=== PATIENT | female | born 2000 | race Caucasian/White ===

== ENCOUNTER 2025-04-20 20:01 | Emergency (ER) | payer OTHER, SELFPAY ==
[2025-04-20 20:03] VITALS: BP 147/85
[2025-04-20 20:28] LABS: Hematocrit 39.6 % (37.0-47.0); Hemoglobin 12.9 g/dL (12.0-16.0); Mean Corp Hgb Conc. 32.6 g/dL (33.0-37.0); Mean Corpuscular Volume 96.4 fL (81.0-99.0); Nucleated Red Blood Cells % 0 %; Platelet Count 251 10^3/uL (130-400); Red Cell Dist. Width 13.2 % (11.5-14.5); Urine Character Clear (Clear)
[2025-04-20 20:36] LABS: Urine Red Blood Cell 0-2 /HPF (0-2)
[2025-04-20 20:41] LABS: HCG, Serum Qualitative Screen Negative
[2025-04-20 20:47] LABS: ALT (SGPT) 20 U/L (0-35); AST (SGOT) 31 U/L (14-36); Albumin 4.3 g/dl (3.5-5.0); Alkaline Phosphatase 169 U/L (38-126); Blood Urea Nitrogen 14 mg/dl (7-17); Calcium 9.3 mg/dl (8.4-10.2); Carbon Dioxide 31 mmol/L (22-30); Chloride 101 mmol/L (98-107); Glucose 108 mg/dl (70-99); Lipase 125 U/L (23-300); Potassium 3.8 mmol/L (3.5-5.1); Sodium 138 mmol/L (135-145); Total Protein 7.5 g/dl (6.3-8.2); eGFR > 60.00
[2025-04-20 20:55] VITALS: BMI 22.3
[2025-04-20 20:59] VITALS: BP 110/75
[2025-04-20 21:45] LABS: C-Reactive Protein 8.70 mg/L (0.0-10.00)
--- NOTE | 2025-04-20 22:07 | ED.GENMED ---
History of Present Illness
General
Chief Complaint: Abdominal Pain
Time Seen by Provider: 04/20/25 20:54
History of Present Illness
History of Present Illness:
24-year-old female presents the emergency department for evaluation of right upper abdominal pain ongoing for the past 2 days. Worse with certain movements or when bending forward. Pain does not radiate to the lower abdomen. Not associate with
any fever, chills, sweats, nausea, vomiting, or diarrhea. Able to eat without provocation of pain. Prior history of cholecystectomy. No urinary tract voiding symptoms, no hematuria
Review of Systems
Review of Systems
Allergies reviewed?: Yes
All Other Systems: ROS reviewed and negative except as documented in HPI and ROS
Phy Exam
Physical Exam
Physical Exam:
GEN: Well appearing, NAD, WDWN
HEENT: Oral mucosa moist, no scleral icterus
Cardiac: Regular rate
Lung: No respiratory distress, no tachypnea
Abdomen: Soft, moderate right upper quadrant tenderness, no rigidity or peritoneal signs, no CVA tenderness bilaterally
MSK: No gross deformity or injuries
Skin: Good color, no pallor or jaundice, no rashes
Neuro: AO x3, moves all extremities freely
Psych: Calm, cooperative
Course
Orders/Labs/Results
Orders:
Orders
04/20/25 20:07
IV Insert/Care/Rem.- Treatment PRN
Test Result ONCE
04/20/25 20:15
C-Reactive Protein Urgent
Comment: ADD ON
Complete Blood Count/With Diff Urgent
Comprehensive Metabolic Panel Urgent
HCG, Serum Qualitative Screen Urgent
Comment: Notify provider if positive test present
Lipase Urgent
Urinalysis Reflex To Culture Urgent
Date Specimen was Collected: 04/20/25
Time Specimen was Collected: 20:07
Urine Microscopic Reflex Cult Urgent
Urine Culture Urgent
THERESA Source: U
Specimen Description:
Date Specimen was Collected: 04/20/25
Time Specimen was Collected: 20:07
04/20/25 21:07
Add On- LAB Urgent
Tests Added?: CRP
Magnesium Citrate [Citroma] 300 ml PO ONCE ONE
US Abdomen Complete/Upper Urgent
Comment:
Reason For Exam: RUQ pain
Abnormal Lab Results
04/20/25
20:15
RBC 4.11 L 10^6/uL
(4.20-5.40)
MCH 31.4 H pg
(27.0-31.0)
MCHC 32.6 L g/dL
(33.0-37.0)
Monocytes % 11.1 H %
(1.7-9.3)
Carbon Dioxide 31 H mmol/L
(22-30)
Glucose 108 H mg/dl
(70-99)
Alkaline Phosphatase 169 H U/L
(38-126)
Leukocyte Esterase Rfl 1+ A
(Negative)
Urine Bacteria (Reflex) Many A
(Negative)
04/20/25 20:15
04/20/25 20:15
Vital Signs
Initial and Last Documented VS:
Initial Vital Signs
Temp Pulse Resp BP Pulse Ox
98.2 F 68 18 147/85 98
04/20/25 20:03 04/20/25 20:03 04/20/25 20:03 04/20/25 20:03 04/20/25 20:03
Last Documented Vital Signs
Temp Pulse Resp BP Pulse Ox
98.2 F 65 18 114/75 99
04/20/25 20:03 04/20/25 22:15 04/20/25 22:15 04/20/25 22:15 04/20/25 22:15
MDM/Problems Addressed
MDM/Problems Addressed:
Patient's labs are reassuring, ultrasound reveals no evidence for biliary ductal dilation or hydronephrosis. Urinalysis positive for bacteriuria but she has no voiding symptoms and no secondary signs such as leukocytosis to suggest acute infectious
etiology. Discussed lack of clinical signs of alternative etiology such as appendicitis given primarily upper abdominal pain. Negative CRP is reassuring against this as well. Do not see indication for CT at this time. Will recommend NSAIDs and
primary care follow-up
*Pulse Oximetry
SaO2: 99
Oxygen Mode of Delivery: Room air
Patient hypoxic: no
*Critical Care Note
Total Time (30-74mins, 75-104mins- exclusive of procedures): Not Applicable
ED Attending Note
-
Portions of this chart may have been created with voice recognition software.� Occasional wrong word or��sound alike� substitutions may have occurred due to the inherent limitations of voice recognition software.
Discharge Plan
Departure
Patient Disposition: Home (Routine Discharge)
Date of Disposition: 04/20/25
Time of Disposition: 22:09
Patient with high blood pressure during this ER visit?: No
Discharge Problem:
Right upper quadrant abdominal pain
Instructions: Abdominal Pain
Activity Restrictions/Additional Instructions:
Try 600 mg of ibuprofen every 6-8 hours as needed for pain for the next 3 to 5 days, follow-up with your primary care physician if symptoms do not improve
Interventions
Interventions:
*Risk Screen - Suicide Last Done: 04/20/25 20:03
*General Assessment Last Done: 04/20/25 20:55
*Neglect/Abuse Screening Last Done: 04/20/25 20:03
*ED- Fall Risk Assessment Last Done: 04/20/25 20:55
*ED COVID-19 Vaccine History Last Done: 04/20/25 20:55
*ED Influenza Vaccine History Last Done: 04/20/25 20:55
[id number]-Anevazawkv Assessment Last Done: 04/20/25 21:03
Discharge Date and Time
Print Language: NEPALESE
[2025-04-20 22:15] VITALS: BP 114/75
== END 2025-04-20 22:40 | disposition home or self-care (01) ==
LOC: EMR 20:01
PROVIDERS: Emergency Medicine; EMERGENCY PHYSICIAN Emergency Medicine; FAMILY PHYSICIAN Internal Medicine
DX: R10.11 Right upper quadrant pain (principal)
CPT/HCPCS: 99284; 76700; 80053; 81003; 81015; 83690; 84703; 85025; 86140; 87086